=== PATIENT | male | born 1995 | race Caucasian/White ===

== ENCOUNTER 2017-03-13 20:46 | Emergency (ER) | payer SELFPAY ==
[2016-04-23 22:54] VITALS: BMI 25.4
== END 2017-03-13 23:35 | disposition home or self-care (01) ==
LOC: D.ER 20:46
DX: R50.9 Fever, unspecified (principal); B34.9 Viral infection, unspecified; J45.909 Unspecified asthma, uncomplicated

== ENCOUNTER 2017-07-27 20:46 | Emergency (ER) | payer SELFPAY ==
[2016-04-23 22:54] VITALS: BMI 25.4
== END 2017-07-27 23:42 | disposition home or self-care (01) ==
LOC: D.ER 20:46
DX: S16.1XXA Strain of muscle, fascia and tendon at neck level, initial encounter (principal); V43.52XA Car driver injured in collision with other type car in traffic accident, initial encounter; Y93.89 Activity, other specified; Y92.410 Unspecified street and highway as the place of occurrence of the external cause; S39.012A Strain of muscle, fascia and tendon of lower back, initial encounter

== ENCOUNTER 2018-08-24 09:58 | Emergency (ER) | payer OTHER ==
[~2018-08-24] VITALS: Ht 175.3 cm; Wt 109.1 kg
[2018-08-24 10:29] VITALS: Ht 175.3 cm; Wt 109.1 kg
[2018-08-24 12:12] LABS: BASOPHILS 0.3 % (0-2); EOSINOPHILS 1.5 % (0-7); HEMATOCRIT 43.1 % (42.0-54.0); IMMATURE GRANULOCYTES 0.2 % (0-5); LYMPHOCYTES 26.9 % (15-50); MCH 30.9 pg (26.0-34.0); MCHC 34.8 g/dL (31.0-37.0); MCV 88.7 fL (80.0-100.0); MEAN PLATELET VOLUME 10.3 fL (7.4-10.4); MONOCYTES 7.6 % (2-11); NEUTROPHILS 63.5 % (40-80); RBC 4.86 10x6/uL (4.20-6.10); RDW 11.8 % (11.5-14.5); WBC 6.2 10x3/uL (4.8-10.8)
[2018-08-24 12:27] LABS: PLATELET COUNT 235 10x3/uL (130-400)
[2018-08-24 12:36] LABS: ALBUMIN 4.1 g/dL (3.4-5.0); ALKALINE PHOSPHATASE 78 U/L (46-116); ALT (SGPT) 28 U/L (10-68); CALC OSMOLALITY 280 mosm/kg (275-300); CALCIUM 9.3 mg/dL (8.5-10.1); CARBON DIOXIDE 30.8 mmol/L (21.0-32.0); CHLORIDE - SERUM 103 mmol/L (98-107); CREATININE - SERUM 0.7 mg/dL (0.6-1.3); GLUCOSE 91 mg/dL (74-106); POTASSIUM - SERUM 4.1 mmol/L (3.5-5.1); PROTEIN - SERUM 8.1 g/dL (6.4-8.2); SODIUM 140 mmol/L (136-145); UREA NITROGEN 17 mg/dL (7-18); eGFR NON AFRICAN AMERICAN > 90 mL/min (90-120)
[2018-08-24 12:42] LABS: UDS - AMPHET NEGATIVE QUAL (NEGATIVE); UDS - BARB NEGATIVE QUAL (NEGATIVE); UDS - BENZO NEGATIVE QUAL (NEGATIVE); UDS - COCAINE NEGATIVE QUAL (NEGATIVE); UDS - OPIATE NEGATIVE QUAL (NEGATIVE); UDS - PCP NEGATIVE QUAL (NEGATIVE); UDS - THC NEGATIVE QUAL (NEGATIVE)
[2018-08-24] MEDS ORDERED: VOLTAREN75 MG PO (13:35)
[2018-08-24] MEDS ORDERED: OMEPRAZOLE20 M1 PO (13:35)
[2018-08-24 14:10] VITALS: BP 137/85
== END 2018-08-24 14:10 | disposition home or self-care (01) ==
LOC: D.ER 09:58
PROVIDERS: Family Medicine
DX: S63.92XA Sprain of unspecified part of left wrist and hand, initial encounter (principal); X58.XXXA Exposure to other specified factors, initial encounter; Y93.89 Activity, other specified; Y92.019 Unspecified place in single-family (private) house as the place of occurrence of the external cause